=== PATIENT | female | born 1970 | race Hispanic/Latino ===

== ENCOUNTER 2024-04-06 22:51 | Emergency (ER) | payer MEDICARE ==
[~2024-04-06] VITALS: Ht 160 cm; Wt 114.3 kg
[2024-04-06] MEDS: TRIAMCINOLONE ACETONIDE 40 MG/ML 1ML VIAL IM ONE (23:27)
[2024-04-06] MEDS: ORPHENADRINE 60MG/2ML IM ONE (23:27)
--- NOTE | 2024-04-06 23:29 | ERN ---
General Chief Complaint: Back Pain-No Injury Stated Complaint: C/O RT BUTTOCK PAIN RADIATES TO RT LEG Time Seen by MD: 23:00 Source: patient, family History of Present Illness Initial Comments PATIENT IS A 53-YEAR-OLD FEMALE, NEW TO EVALUATED FOR RIGHT GLUTEAL PAIN RADIATING DOWN HER RIGHT LEG. PATIENT STATES THAT THIS IS A CHRONIC THING BUT YESTERDAY WHEN SHE JUMPED IN THE SOFA SHE STATES THAT SHE FILTERS HER LEG MOVE FORWARD AND STRAIN HER GLUTEAL REGION. Allergies: Coded Allergies: Iodinated Contrast Media (Unverified Allergy, Unknown, 04/06/24) Past Medical History Past Medical History: Diabetes-Type II, High Cholesterol, Hypertension Medical History Other: LUPUS Past Surgical History: Surgical History Other: HERNIA REPAIR ROS Dictation CONSTITUTIONAL: NO CHILLS, NO FEVER, NO WEAKNESS, NO DIAPHORESIS, NO MALAISE. HEAD/FACE: NO SIGNS OF TRAUMA. EENT: NO EYE PAIN, NO BLURRED VISION, NO TEARING, NO DOUBLE VISION, NO EAR PAIN, NO EAR DISCHARGE, NO NOSE PAIN, NO NASAL CONGESTION, NO THROAT PAIN, NO THROAT SWELLING, NO MOUTH PAIN. RESPIRATORY: NO COUGH, NO ORTHOPNEA, NO SOB, NO STRIDOR, NO WHEEZING. CARDIOVASCULAR: NO CHEST PAIN, NO EDEMA, NO PALPITATIONS, NO SYNCOPE. GASTROINTESTINAL/ABDOMINAL: NO ABDOMINAL PAIN, NO CONSTIPATION, NO DIARRHEA, NO NAUSEA, NO VOMITING. GENITOURINARY: NO ABNORMAL DISCHARGE, NO DYSURIA, NO FREQUENT URINATION, NO HEMATURIA. NO COMPLAINTS OF PAIN IN THE GENITALS. MUSCULOSKELETAL: NO BACK PAIN, NO GOUT, NO JOINT PAIN, NO JOINT SWELLING, MUSCLE PAIN, NO MUSCLE STIFFNESS, NO NECK PAIN. INTEGUMENTARY: NO CHANGE IN COLOR, NO CHANGE IN HAIR/NAILS, NO DRYNESS, NO LESION, NO LUMPS, NO RASH. NEUROLOGICAL/PSYCH: NO ANXIETY, NOT DEPRESSED, NO EMOTIONAL PROBLEM, NO HEADACHE, NO NUMBNESS, NO PRE-EXISTING DEFICIT, NO HISTORY OF SEIZURES, NO TREMORS, NO WEAKNESS. HEMATOLOGIC/LYMPHATIC: NOT ANEMIC, NO HISTORY OF BLOOD CLOTS, NO APPARENT BLEEDING, NO BRUISING, GLANDS NOT SWOLLEN. ALL SYSTEMS NEGATIVE, EXCEPT NOTED. Physical Exam Physical Exam Dictation VITAL SIGNS: REVIEWED. GENERAL APPEARANCE: ALERT, ORIENTED X3, NO ACUTE DISTRESS, OBESE. HEAD AND FACE: NON-TRAUMATIC. EYES: PERRL, PINK CONJUNCTIVAS, EYELID NO TRAUMA, ANTERIOR CHAMBER CLEAR. EARS: PINNAS INTACT AND NO SIGNS OF TRAUMA OR ERYTHEMA. EAR CANALS CLEAR AND NO DISCHARGE. TMS NO ERYTHEMA. NOSE: NO DISCHARGE, NO BLEEDING. OROPHARYNX: MOUTH NORMAL, TEETH NO CARIES, TONGUE PINK. PHARYNX CLEAR, NO ERYTHEMA. TONSILS NO EXUDATES, NO ABSCESSES NOTED. MUCOUS MEMBRANE MOIST. NECK: SUPPLE, NON-TENDER, NO THYROMEGALY, NO MASSES, NO JVD, NO BRUITS. BREAST: DEFERRED. CHEST: NO TENDERNESS, NO CREPITUS, NO PARADOXICAL MOVEMENT, NO RETRACTIONS. LUNGS: CLEAR, WELL-VENTILATED, SYMMETRIC, NO RALES, NO WHEEZING, NO RHONCHI, NO STRIDOR, GOOD BREATH SOUNDS BILATERALLY. HEART: REGULAR RATE, REGULAR RHYTHM, NO MURMUR, NO GALLOPS. VASCULAR: NO PERIPHERAL EDEMA. ABDOMEN: SOFT, POSITIVE BOWEL SOUNDS, NONDISTENDED, NO GUARDING, NONTENDER, NO REBOUND, NO MASSES NO HEPATOMEGALY, NO SPLENOMEGALY, NO HUTSON'S SIGN, NO HERNIAS. RECTAL: DEFERRED. GENITAL: DEFERRED. NEUROLOGICAL: NORMAL SPEECH, GROSS MOTOR FUNCTION INTACT, GROSS SENSORY FUNCTION INTACT. MUSCULOSKELETAL: NECK NONTENDER, FULL RANGE OF MOTION, BACK NONTENDER, FULL RANGE OF MOTION. EXTREMITIES: NONTENDER, FULL RANGE OF MOTION. RIGHT PIRIFORMIS MUSCLE TENDERNE SS ON PALPATION SKIN: COLOR PINK, DRY, NO TURGOR, NO RASH, NO LACERATIONS, NO ABRASIONS, NO CONTUSIONS. LYMPHATICS: DEFERRED. Results Laboratory and Microbiology Labs Reviewed?: Yes MDM MDM: DIFFERENTIAL DIAGNOSIS: RIGHT-SIDED SCIATICA, CHRONIC BACK PAIN, PATIENT IS A 53-YEAR-OLD FEMALE, KNOWN TO EVALUATED FOR RIGHT GLUTEAL PAIN. PATIENT STATES THAT THIS PAIN HAS BEEN ONGOING FOR SEVERAL MONTHS. ON PHYSICAL EXAM RIGHT PIRIFORMIS MUSCLE TENDERNESS TO PALPATION. PATIENT RECEIVED ANTISPASMODICS AND ANTI-INFLAMMATORY STATES HE FEELS MUCH BETTER. ED Course Orders Procedure Category Date Status Time Orphenadrine Citrate PHA 04/06/24 Complete (Norflex) 23:30 Triamcinolone Acet PHA 04/06/24 Complete 40mg/Ml 1ml (Kenalog 23:30 Ketorolac PHA 04/07/24 Complete Tromethamine 30mg/Ml 00:00 Current Medications Medications (Trade) Dose Ordered Sig/Adelina Route PRN Reason Start Time Stop Time Status Last Admin Dose Admin Ketorolac Tromethamine (toRADol) 30 mg ONCE ONCE IM 04/07/24 00:00 04/07/24 00:01 DC 04/07/24 00:05 Orphenadrine Citrate (Norflex) 60 mg ONCE ONCE IM 04/06/24 23:30 04/06/24 23:31 DC 04/06/24 23:27 Triamcinolone Acetonide (Kenalog 40) 40 mg ONCE ONCE IM 04/06/24 23:30 04/06/24 23:31 DC 04/06/24 23:27 Vital Signs Date Time Temp Pulse Resp B/P (MAP) Pulse Ox O2 Delivery O2 Flow Rate FiO2 04/06/24 23:35 98.4 92 18 125/65 99 Room Air* 0 21 04/06/24 22:57 98.2 93 20 153/90 98 Room Air DX & DISP Disposition: Discharge Departure Impression: Primary Impression: Right sided sciatica Condition: Stable Scripts Naproxen (Naproxen) 375 Mg Tablet. 375 MG PO BID for 7 Days, #14 TAB Prov: RODOLFO ALANIS MD 04/07/24 Methocarbamol (Robaxin) 750 Mg Tab 750 MG PO BID for 7 Days, #14 TAB Prov: RODOLFO ALANIS MD 04/07/24 Additional Instructions: Discharge home. Rest. Follow up with primary care in 24 hours. Return to the ER for any acute change. Patient was also advised to follow-up with primary care physician in 1 to 2 days for continued monitoring. All instructions were given to laymans term and patient agreeable to discharge and proper follow-up. Referrals: YUMIKO FRAGOSO MD Time of Disposition: 00: RODOLFO ALANIS MD Apr 06, 2024 23:29
[2024-04-06 23:35] VITALS: BP 125/65; PULSE 92; RESP 18; TEMP 98.5; O2SAT 99
[2024-04-07] MEDS: ketOROlac 30MG VIAL (30MG/ML) IM ONE (00:05)
[2024-04-07] MEDS ORDERED: METH-662 PO (00:27)
[2024-04-07] MEDS ORDERED: NAPR-1505 PO (00:27)
== END 2024-04-07 00:34 | disposition home or self-care (01) ==
LOC: EDH 22:51
DX: M54.31 Sciatica, right side (principal); E11.9 Type 2 diabetes mellitus without complications; E78.00 Pure hypercholesterolemia, unspecified; I10 Essential (primary) hypertension; Z91.041 Radiographic dye allergy status; Z98.890 Other specified postprocedural states
CPT/HCPCS: 99284; 96372 ×2; J3301; J1885; J2360

== ENCOUNTER 2024-04-07 11:35 | Emergency (ER) | payer MEDICARE ==
[~2024-04-07] VITALS: Ht 160 cm; Wt 115.2 kg
[~2024-04-07 11:35] MED LIST: METH-662 PO; NAPR-1505 PO
--- NOTE | 2024-04-07 12:04 | ERN ---
ED Note History of Present Illness Stated Complaint: SEVERE HIP PAIN Time Seen by MD: 11:36 Dictation: PATIENT IS A 53-YEAR-OLD FEMALE COMING IN TODAY WITH RIGHT POSTERIOR HIP PAIN THAT DOES NOT RADIATE ONSET WAS TWO DAYS AGO. SHE STATES SHE WAS IN HER RECLINER CHAIR AND WHEN SHE STOOD UP SHE FELT A POP IN HER HIP BACK AREA AND HAS HAD THE PAIN SINCE. WAS SEEN AT [facility] LAST NIGHT WAS TREATED AND WENT HOME OUT OF PAIN HOWEVER SHE STATES THE PAIN GOT WORSE WHEN SHE GOT HOME. SHE WAS PRESCRIBED NAPROXEN AND METHOCARBAMOL BY THE ER MD LAST NIGHT, STATES SHE HAS NOT BEEN TO THE EMERGENCY ROOM TO COMBAT SYSTEMS OFFICER THE PRESCRIPTIONS IF. SHE LIVES IN [facility] AND IS RETURNING IN TWO WEEKS. SHE DENIES ANY PRIOR HISTORY OF HIP OR BACK SURGERIES NO HISTORY OF RADICULOPATHY OR SCIATICA NO FEVER NO CHILLS Allergies: Coded Allergies: Iodinated Contrast Media (Unverified Allergy, Unknown, 04/06/24) Home Meds Active Scripts Naproxen (Naproxen) 375 Mg Tablet.dr, 375 MG PO BID for 7 Days, #14 TAB Prov:RODOLFO ALANIS MD 04/07/24 Methocarbamol (Robaxin) 750 Mg Tab, 750 MG PO BID for 7 Days, #14 TAB Prov:RODOLFO ALANIS MD 04/07/24 Past Medical History Past Medical History: Diabetes-Type II, High Cholesterol, Hypertension Additional Past Medical Hx: LUPUS Surgical History: Surgical History Other: HERNIA REPAIR History: Not Applicable RN Note Reviewed/Agreed w/PFSH: Yes Review of System Dictation CONSTITUTIONAL: NEGATIVE EXCEPT FOR HPI HEAD/FACE: NEGATIVE EXCEPT FOR HPI EENT: NEGATIVE EXCEPT FOR HPI RESPIRATORY: NEGATIVE EXCEPT FOR HPI GASTROINTESTINAL/ABDOMINAL: NEGATIVE EXCEPT FOR HPI GENITOURINARY: NEGATIVE EXCEPT FOR HPI MUSCULOSKELETAL: NEGATIVE EXCEPT FOR HPI RIGHT POSTERIOR HIP PAIN INTEGUMENTARY: NEGATIVE EXCEPT FOR HPI NEUROLOGICAL/PSYCH: NEGATIVE EXCEPT FOR HPI HEMATOLOGIC/LYMPHATIC: NEGATIVE EXCEPT FOR HPI ALL SYSTEMS NEGATIVE, EXCEPT NOTED ABOVE. 13 POINT REVIEW OF SYSTEMS ASSESSED AND ALL NEGATIVE EXCEPT FOR ABOVE. Initial Vital Sign VS Vital Signs Date Time Temp Pulse Resp B/P (MAP) Pulse Ox O2 Delivery O2 Flow Rate FiO2 04/07/24 12:21 98.8 78 18 133/70 Room Air 0 04/07/24 13:24 98 21 Physical Exam Dictation VITAL SIGNS REVIEWED GENERAL APPEARANCE: ALERT, ORIENTED X 3, MODERATE ACUTE DISTRESS, WELL DEVELOPED, NOURISHED. OBESE HEAD AND FACE: NON-TRAUMATIC. EYES: PERRL, PINK CONJUNCTIVAS, EYELID NO TRAUMA, ANTERIOR CHAMBER WITH ARCUS SENILIS. EARS: PINNAS INTACT AND NO SIGNS OF TRAUMA OR ERYTHEMA EAR CANALS CLEAR AND NO DISCHARGE TM NO ERYTHEMA NOSE: NO DISCHARGE, NO BLEEDING. OROPHARYNX: MOUTH NORMAL, TONGUE PINK, PHARYNX CLEAR,NO ERYTHEMA, TONSILS NO EXUDATES, NO ABSCESSES NOTED, MUCOUS MEMBRANE MOIST NECK: SUPPLE, NON-TENDER, NO THYROMEGALY, NO MASSES, NO JVD, NO BRUITS BREAST:DEFERRED CHEST:NO TENDERNESS, NO CREPITUS, NO PARADOXICAL MOVEMENT, NO RETRACTIONS LUNGS:CLEAR, WELL-VENTILATED, SYMMETRIC, NO RALES, NO WHEEZING, NO RHONCHI, NO STRIDOR, GOOD BREATH SOUNDS BILATERALLY HEART: REGULAR RATE, REGULAR RHYTHM, NO MURMUR, NO GALLOPS VASCULAR: NO PERIPHERAL EDEMA, ABDOMEN: SOFT, POSITIVE BOWEL SOUNDS, NONDISTENDED, NO GUARDING, NONTENDER, NO REBOUND, NO MASSES NO HEPATOMEGALY, NO SPLENOMEGALY, NO HUTSON'S SIGN, NO HERNIAS. RECTAL: DEFERRED GENITAL: DEFERRED NEUROLOGICAL: NORMAL SPEECH, MOTOR FUNCTION INTACT, SENSORY FUNCTION INTACT MUSCULOSKELETAL: NECK NONTENDER, FULL RANGE OF MOTION, RIGHT POSTEROLATERAL HIP TENDERNESS WITH PALPATION NO SHORTENING OR ROTATION OF LEG., FULL RANGE OF MOTION, EXTREMITIES: NONTENDER, FULL RANGE OF MOTION SKIN: COLOR PINK, DRY, NO TURGOR, NO RASH, NO LACERATIONS, NO ABRASIONS, NO CONTUSIONS. LYMPHATIC: DEFERRED Results (Laboratory/Radiology) Laboratory/Radiology HIP UNILAT 2-3VW RIGHT REASON: POSTERIOR RIGHT HIP PAIN NON TRAUMA THREE DAYS COMPARISON: None TECHNIQUE: 3 views were obtained of the pelvis and right hip. FINDINGS: There are normal-appearing bones of the pelvis. Hip joint spaces are preserved. Proximal right femur appears unremarkable as well. IMPRESSION: 1. Normal views of the pelvis and right hip. Labs Reviewed?: Yes ED Course ED Course , PATIENT DISCHARGED HOME AFTER TREATMENT WITH [facility] AND [facility]. SHE IS AWARE THAT X-RAY IS NEGATIVE AND SHE NEEDS TO FOLLOW UP WITH HER DOCTOR IN THE [facility] WHEN SHE RETURNS HOME FOR RECOMMENDED MRI Medical Decision Making MDM MEDICAL DISCHARGE MAKING BASED ON RIGHT HIP X-RAY AND PAIN MANAGEMENT. X-RAY OF THE HIP NEGATIVE DISCHARGED HOME WITH A ACUTE RIGHT HIP PAIN TOLD TO CONTINUE ALL OF HER MEDICATIONS FROM HER VISIT LAST NIGHT AND TO SEE HER DOCTOR IN [place] SOON POSSIBLE DX & DISP Disposition: Discharge Departure Impression: Primary Impression: Acute right hip pain Condition: Stable Additional Instructions: FOLLOW-UP WITH PRIMARY CARE PROVIDER IN 1 TO 2 DAYS. TAKE MEDICATIONS DIRECTED HERE IN THE EMERGENCY ROOM. OKAY TO CONTINUE HOME MEDICATIONS UNLESS OTHERWISE DISCUSSED DURING YOUR VISIT IN THE EMERGENCY ROOM TODAY. RETURN TO YOUR NEAREST EMERGENCY ROOM IF SYMPTOMS WORSEN OR IF THERE IS NO IMPROVEMENT. CALL 911 IF YOU NEED IMMEDIATE ASSISTANCE. TAKE TYLENOL OR MOTRIN [id number] NEEDED AND IF NO CONTRAINDICATIONS ARE PRESENT. INCREASE ORAL HYDRATION. A WOUND CULTURE OR URINE CULTURE WAS ORDERED HERE IN THE EMERGENCY ROOM DEPARTMENT PLEASE FOLLOW-UP WITH PRIMARY CARE PROVIDER AND ADVISE THEM TO GET REPEAT PORTS FROM OUR FACILITY. IF YOU HAD ANY ANNA WRAP/SPLINTS THAT WERE APPLIED HERE, PLEASE DO NOT REMOVE THEM UNTIL YOU SEE YOUR PRIMARY CARE OR SPECIALTY. TAKE MEDICATIONS DIRECTED FROM YOUR ER VISIT LAST NIGHT. FOLLOW UP WITH YOUR PRIMARY CARE DOCTOR IN [place] IN THE NEXT SEVERAL DAYS FOR RECOMMENDED MRI AND MANAGEMENT Referrals: NONE (PCP) Time of Disposition: 13:21 I have reviewed the case, and I agree with, Diagnosis and Plan I performed this substantive portion of this visit. I have reviewed and personally made and approve the management plan that is documented in the note by myself or the TERRA. I acknowledge full responsibility for the patient's management plan. BRYCE GOYAL NP Apr 07, 2024 12:04 NOA MAHONEY MD Apr 13, 2024 10:34
--- NOTE | 2024-04-07 13:07 | HMCIMG ---
HIP UNILAT 2-3VW RIGHT REASON: POSTERIOR RIGHT HIP PAIN NON TRAUMA THREE DAYS COMPARISON: None TECHNIQUE: 3 views were obtained of the pelvis and right hip. FINDINGS: There are normal-appearing bones of the pelvis. Hip joint spaces are preserved. Proximal right femur appears unremarkable as well. IMPRESSION: 1. Normal views of the pelvis and right hip.
--- NOTE | 2024-04-07 13:23 | NUR ---
PT JUST NOW PLACED IN ED BED 11
[2024-04-07 13:24] VITALS: BP 134/58; PULSE 78; RESP 18; TEMP 98.2; O2SAT 98
[2024-04-07] MEDS: dexaMETHasone SOD PHOSPHATE 4 MG/ML 1ML VIAL IM ONE (13:35)
[2024-04-07] MEDS: HYDROcodone/APAP 5/325 1 TAB TABLET PO ONE (13:35)
== END 2024-04-07 13:39 | disposition home or self-care (01) ==
LOC: EDH 11:35
DX: M25.551 Pain in right hip (principal); E11.9 Type 2 diabetes mellitus without complications; E78.00 Pure hypercholesterolemia, unspecified; I10 Essential (primary) hypertension; Z91.041 Radiographic dye allergy status; Z98.890 Other specified postprocedural states
CPT/HCPCS: 99284; 73502; 96372 ×2; J1100; J1885